=== PATIENT | female | born 1960 ===

== ENCOUNTER 2016-11-16 15:59 | Emergency (ER) | payer MEDICARE, MEDICAID ==
[2016-11-16 16:00] VITALS: BMI 35.9
[2016-11-16 16:05] VITALS: TEMP 98.7
[2016-11-16] MEDS ORDERED: Sodium Chloride 0.9% 1,000 ML IV ONE ×2 (16:23)
[2016-11-16] MEDS ORDERED: Sodium Chloride 0.9% 1,000 ML ONE (16:32)
[2016-11-16 16:40] LABS: BASO % 0.5 % (0.0-2.0); EOS % 0.3 % (0.0-4.0); LYMPH # 2.3 K/uL (1.0-4.3); LYMPH % 29.7 % (20.0-40.0); MEAN CELL VOLUME 89.7 fL (81.0-99.0); MEAN CORPUSCULAR HEMOGLOBIN 29.5 pg (27.0-31.0); MEAN CORPUSCULAR HGB CONC 32.9 g/dL (33.0-37.0); MONO # 0.3 K/uL (0.0-0.8); MONO % 4.4 % (0.0-10.0); RED CELL DISTRIBUTION WIDTH 11.6 % (11.5-14.5); WHITE BLOOD COUNT 7.6 K/uL (4.8-10.8)
--- NOTE | 2016-11-16 16:42 | RAD ---
PROCEDURE: CHEST RADIOGRAPH, 1 VIEW HISTORY: Abdominal pain COMPARISON: 01/02/2013 FINDINGS: LUNGS: The lungs are clear. PLEURA: No pneumothorax or pleural fluid seen. CARDIOVASCULAR: Normal. OSSEOUS STRUCTURES: No significant abnormalities. VISUALIZED UPPER ABDOMEN: Normal. OTHER FINDINGS: None. IMPRESSION: No active pulmonary disease.
[2016-11-16 16:50] LABS: CHLORIDE 98 mmol/L (98-107); SODIUM 136 mmol/L (132-148)
[2016-11-16 16:52] LABS: AST/SGOT 50 U/L (14-36); BILIRUBIN,TOTAL 1.5 mg/dL (0.2-1.3); CARBON DIOXIDE 24 mmol/L (22-30); GFR AFRICAN-AMERICAN > 60
[2016-11-16 16:53] LABS: ALB/GLOB RATIO 1.6 (1.0-2.1); ALKALINE PHOSPHATASE 95 U/L (38-126); ALT/SGPT 16 U/L (9-52); BLOOD UREA NITROGEN 10 mg/dL (7-17); CALCIUM 8.7 mg/dl (8.6-10.4); GLUCOSE,RANDOM 333 mg/dL (65-105); TOTAL PROTEIN 8.6 g/dL (6.3-8.3)
[2016-11-16 16:58] LABS: POTASSIUM 5.1 mmol/L (3.6-5.2)
--- NOTE | 2016-11-16 17:27 | C.PDOC ---
History Of Present Illness The patient, a 56 y/o female, presents to the ED for evaluation of vomiting which began around 2 days ago. Patient has been taking Zofran at home without relief. Patient also reports mild diffuse abdominal pain. She reports right- sided rib pain which begins occurring after episodes of vomiting. She denies fever, chills, chest pain, or diarrhea. Time Seen by Provider: 11/16/16 16:09 Chief Complaint (Nursing): GI Problem History Per: Patient History/Exam Limitations: no limitations Onset/Duration Of Symptoms: Days (2) Current Symptoms Are (Timing): Still Present Severity: Mild Quality Of Discomfort: "Pain" Associated Symptoms: Vomiting. denies: Fever, Chills, Diarrhea Exacerbating Factors: None Alleviating Factors: None Additional History Per: Patient Abnormal Vaginal Bleeding: No Past Medical History Reviewed: Historical Data, Nursing Documentation, Vital Signs Vital Signs: Last Vital Signs Temp 98.7 F 11/16/16 16:01 Pulse 82 11/16/16 18:45 Resp 18 11/16/16 18:45 BP 118/67 11/16/16 18:45 Pulse Ox 98 11/16/16 18:45 - Medical History PMH: Anxiety, Back Problems (Herniated Disc), Depression, Diabetes, HTN Surgical History: No Surg Hx - [facility] Procedures ANESTH INJECT-SPIN CANAL (07/18/13) APPLICATION OF SPLINT (04/19/14) ENDOSC POLYPECTOMY OF LG INTEST (02/09/13) INJECT STEROID (07/18/13) INJECT/INFUSE NEC (11/24/12) LUMBOSAC SPINE X-RAY NEC (07/18/13) SPINAL CANAL INJECT NEC (07/18/13) TETANUS TOXOID ADMINIST (04/19/14) Family History: States: Unknown Family Hx - Social History Hx Tobacco Use: No Hx Alcohol Use: No Hx Substance Use: No Review Of Systems Constitutional: Negative for: Fever, Chills Gastrointestinal: Positive for: Vomiting, Abdominal Pain (mild, diffuse ). Negative for: Diarrhea Musculoskeletal: Positive for: Other (+right-sided rib pain s/p episodes of vomiting ) Physical Exam - Physical Exam Appears: Non-toxic, No Acute Distress Skin: Normal Color, Warm, Dry Head: Atraumatic, Normacephalic Eye(s): bilateral: Normal Inspection Oral Mucosa: Moist Neck: Supple Chest: Symmetrical, No Deformity, No Tenderness Cardiovascular: Rhythm Regular, No Murmur Respiratory: No Rales, No Rhonchi, No Wheezing Gastrointestinal/Abdominal: Soft, No Tenderness (mild mostly epigastric), No Guarding, No Rebound Back: Normal Inspection Extremity: Normal ROM Neurological/Psych: Oriented x3, Normal Speech, Normal Cognition Gait: Steady ED Course And Treatment - Laboratory Results Result Diagrams: 11/16/16 16:31 11/16/16 16:31 ECG: Interpreted By Me, Viewed By Me ECG Rhythm: Sinus Rhythm Interpretation Of ECG: Sinus Rhythm at rate 86bpm. Rate From EC O2 Sat by Pulse Oximetry: 99 (on RA) Pulse Ox Interpretation: Normal - Other Rad CXR X-Ray: Interpreted by Me, Viewed By Me, Read By Radiologist Interpretation: Accession No. : [id number]. Patient Name / ID : LUPE CHE / [id number]. Exam Date : 11/16/2016 16:29:19 ( Approved ). Study Comment : Sex / Age : F / [id number]. Creator : NANI MORTENSEN MD. Dictator : NNAI MORTENSEN MD. Decay Control Operator : Roastmaster : NANI MORTENSEN MD. Approver2 : Report Date : 11/16/2016 16:41:05. My Comment : . PROCEDURE: CHEST RADIOGRAPH, 1 VIEW. HISTORY: Abdominal pain. COMPARISON: 01/02/2013. FINDINGS: LUNGS: The lungs are clear. PLEURA: No pneumothorax or pleural fluid seen. CARDIOVASCULAR: Normal. OSSEOUS STRUCTURES: No significant abnormalities. VISUALIZED UPPER ABDOMEN: Normal. OTHER FINDINGS: None. IMPRESSION: No active pulmonary disease. Medical Decision Making Medical Decision Making: Plan: * labs * EKG * CXR * Pepcid IV * Reglan IV * IV Fluids * reassess and disposition Progress: labs, EKG, CXR ordered and reviewed. Patient was treated with Pepcid IV, Reglan IV, and IV Fluids. No indication of DKA, pt responded to reglan without vomiting in the ED Labs plan discussed pt requested dilaudid for her side pain prior to leaving, only after dc plans discussed. "so i can sleep at home" Pt has no indication of surgical abd, daughter will arrange Uber to home Plan dc home with reglan Disposition Counseled Patient/Family Regarding: Diagnosis, Need For Followup - Disposition Referrals: Shaik Lopez MD [Staff Provider] - Disposition: HOME/ ROUTINE Disposition Time: 18:08 Condition: GOOD Prescriptions: Metoclopramide [Reglan] 1 tab PO TID PRN #25 tab PRN Reason: Nausea/Vomiting Instructions: Acute Nausea and Vomiting (ED), Abdominal Pain (ED) - Clinical Impression Clinical Impression: Nausea, Vomiting, Abdominal pain - Scribe Statement The provider has reviewed the documentation as recorded by the Scribe (Dana Spencer) Provider Attestation: All medical record entries made by the Scribe were at my direction and personally dictated by me. I have reviewed the chart and agree that the record accurately reflects my personal performance of the history, physical exam, medical decision making, and the department course for this patient. I have also personally directed, reviewed, and agree with the discharge instructions and disposition.
[2016-11-16 17:41] LABS: RBC URINE 9 /hpf (0-3); URINE BACTERIA RARE (<OCC); URINE BILIRUBIN NEGATIVE (NEGATIVE); URINE BLOOD NEGATIVE (NEGATIVE); URINE COLOR Yellow (YELLOW); URINE GLUCOSE (UA) 3+ mg/dL (Normal); URINE KETONE NEGATIVE (NEGATIVE); URINE LEUKOCYTE ESTERASE NEG Leu/uL (Negative); URINE PROTEIN NEGATIVE (NEGATIVE); URINE UROBILINOGEN NORMAL mg/dL (0.2-1.0); WBC URINE 1 /hpf (0-5)
[2016-11-16] MEDS ORDERED: HYDROmorphone 0.5 mg/0.5 ml ISec IVP STA (18:07)
[2016-11-16] MEDS ORDERED: HYDROmorphone 1 mg/ml ISec ONE (18:19)
[2016-11-16 18:45] VITALS: BP 118/67; PULSE 82; RESP 18
[2016-11-17 12:40] VITALS: O2SAT 99
--- NOTE | 2016-11-18 07:55 | CARD ---
APPROVED REPORT EKG Measurement Heart [id number] <Conclusion> Poor data quality, interpretation may be adversely affected Normal sinus rhythm Normal ECG
== END 2016-11-16 18:51 | disposition home or self-care (01) ==
LOC: C.ER 15:59
DX: R11.2 Nausea with vomiting, unspecified (principal); R10.84 Generalized abdominal pain
CPT/HCPCS: 71010; 80053; 81001; 82009; 83690; 84484; 85025; 93005; 96361; 96374; 96375; 99285; J1170; J2765; J7040

== ENCOUNTER 2017-07-08 07:47 | Day surgery (SDC) | payer MEDICARE, OTHER ==
[2017-07-08 08:33] VITALS: BMI 35.0
[2017-07-08] MEDS ORDERED: Midazolam 2 MG/2 ML VIAL ONE (09:37)
[2017-07-08] MEDS ORDERED: Propofol 10 mg/ml Inj (20 ML) ONE ×2 (09:38→10:14)
[2017-07-08] MEDS ORDERED: Lactated Ringer's 1,000 ML IV ONE (09:54)
--- NOTE | 2017-07-08 09:54 | CP.SDSHP ---
Same Day Surgery H & P - History Proposed Procedure: Colonoscopy Pre-Op Diagnosis: Abnormal GI tract imaging - Previous Medical/Surgical History Cardiac: Hypertension Endocrine/Metabolic: Diabetes Previous Surgical History: BTL - Allergies Allergies: Allergies metronidazole [From Flagyl] Allergy (Intermediate, Verified 07/08/17 08:34) RASH - Current Medications Current Medications: reviewed, per reconciliation - Physical Exam General Appearance: wdwn nad Vital Signs: Vital Signs 07/08/17 08:21 Temperature 97.5 F L Pulse Rate 78 Respiratory 18 Rate Blood Pressure 137/87 O2 Sat by Pulse 98 Oximetry Mental Status: Alert & Oriented x3 Heart: WNL Lungs: WNL GI: WNL - {Optional Preform as Required} Abdomen: WNL - Impression Impression: Abnormal GI tract imaging Pt. Evaluated Today:Candidate for Anesthesia & Procedure: Yes - Date & Time Date: 07/08/17 Time: 09:54 Short Stay Discharge - Short Stay Discharge Admitting Diagnosis/Reason for Visit: COLITIS Disposition: HOME/ ROUTINE
[2017-07-08 10:39] VITALS: TEMP 97.4
[2017-07-08 10:46] VITALS: O2SAT 100
[2017-07-08 12:16] VITALS: BP 132/72; PULSE 78; RESP 17
== END 2017-07-08 11:50 | disposition home or self-care (01) ==
LOC: C.ENDO 07:47
PROVIDERS: ATTEND Internal Medicine Gastroenterology
DX: R93.3 Abnormal findings on diagnostic imaging of other parts of digestive tract (principal); E11.9 Type 2 diabetes mellitus without complications
CPT/HCPCS: 45378; 82948; J2250; J2704; J7120

== ENCOUNTER 2017-11-29 12:52 | Emergency (ER) | payer MEDICARE, OTHER ==
[2017-11-29 12:53] VITALS: BMI 35.0
[2017-11-29 13:17] VITALS: RESP 18; O2SAT 100
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
[2017-11-29] MEDS ORDERED: Oxycodone/Acetaminophen 5/325 mg Tab PO STA (15:33)
[2017-11-29] MEDS ORDERED: Oxycodone/Acetaminophen 5/325 mg Tab ONE (15:44)
[2017-11-29 16:54] VITALS: BP 139/76; PULSE 89; TEMP 97.8
== END 2017-11-29 17:03 | disposition home or self-care (01) ==
LOC: C.ER 12:52
DX: M25.522 Pain in left elbow (principal)
CPT/HCPCS: 73080; 82948; 96372; 99284; J1885

== ENCOUNTER 2018-01-18 18:05 | Emergency (ER) | payer MEDICARE, OTHER ==
[2018-01-18 18:10] VITALS: BMI 34.7
[2018-01-18 18:13] VITALS: BP 137/90; PULSE 105; RESP 22; TEMP 98.1; O2SAT 95
--- NOTE | 2018-01-18 19:18 | C.PDOC ---
History Of Present Illness HPI: Patient is a 57 year old female who reports for opiate withdrawal. She states she usually takes Oxycodone 30mg 4 times a day for the past 7 years, and Xanax 1mg 3 times daily as well. She states she last took Oxycodone 2 days ago, and she experienced some shaking earlier today. She states she took Xanax earlier today around 1pm. She states she feels anxious, has some abdominal pain, nausea, vomiting, diarrhea. She states she does not want detox from opioids at this time. PMH: herniated disk, right rotator cuff, DM Meds: Metformin, Novolog Allergies: Flagyl - pruritis Time Seen by Provider: 01/18/18 18:50 Chief Complaint (Nursing): Substance Abuse Past Medical History Vital Signs: Last Vital Signs Temp 98.1 F 01/18/18 18:10 Pulse 105 H 01/18/18 18:10 Resp 22 01/18/18 18:10 BP 137/90 01/18/18 18:10 Pulse Ox 95 01/18/18 19:49 - Medical History PMH: Anxiety, Arthritis, Back Problems (Herniated Disc), Crohn's Disease, Depression, Diabetes, HTN, Chronic Pain Denies: Chronic Kidney Disease - [facility] Procedures ANESTH INJECT-SPIN CANAL (07/18/13) APPLICATION OF SPLINT (04/19/14) ENDOSC POLYPECTOMY OF LG INTEST (02/09/13) INJECT STEROID (07/18/13) INJECT/INFUSE NEC (11/24/12) LUMBOSAC SPINE X-RAY NEC (07/18/13) SPINAL CANAL INJECT NEC (07/18/13) TETANUS TOXOID ADMINIST (04/19/14) Family History: States: Unknown Family Hx - Social History Hx Tobacco Use: No Hx Alcohol Use: No Hx Substance Use: No - Immunization History Hx Tetanus Toxoid Vaccination: No Hx Influenza Vaccination: No Hx Pneumococcal Vaccination: No Review Of Systems Constitutional: Negative for: Fever, Chills Cardiovascular: Negative for: Chest Pain, Palpitations, Light Headedness Gastrointestinal: Positive for: Nausea, Vomiting, Abdominal Pain, Diarrhea Psych: Positive for: Anxiety, Withdrawal Physical Exam - Physical Exam Appears: Well, Non-toxic Skin: Warm, Dry Head: Atraumatic, Normacephalic Eye(s): bilateral: EOMI Cardiovascular: Rhythm Regular, No Murmur, No JVD Respiratory: Normal Breath Sounds, No Rales, No Rhonchi, No Stridor, No Wheezing Gastrointestinal/Abdominal: Bowel Sounds (Hyperactive ), Soft, No Tenderness Pulses: Right Femoral: Normal, Left Dorsalis Pedis: Normal Neurological/Psych: Oriented x3, Other (Not tremulous) ED Course And Treatment O2 Sat by Pulse Oximetry: 95 Progress Note: Patient states she does not want Tylenol since that will not work for her pain. Still continues to refuse detox. Reevaluation Time: 19:40 Medical Decision Making Medical Decision Making: Tylenol 650mg PO and Zofran 4mg PO ordered for patient. She refused Tylenol stating that it would not work for her pain. Patient is not currently withdrawing and is refusing opiate detox at this time. Disposition - Disposition Referrals: [facility] [Outside] Disposition: HOME/ ROUTINE Disposition Time: 19:45 Condition: STABLE Additional Instructions: Please return to the ED if symptoms worsen or recur. Follow up with PMD or [facility] to discuss prescription pain killer use. Return to the ED if symptoms of withdrawal return. Instructions: Prescription Drug Abuse (DC) Forms: [facility] (Nepali) - Clinical Impression Clinical Impression: Opioid abuse, Prescription drug abuse
== END 2018-01-18 19:52 | disposition home or self-care (01) ==
LOC: C.ER 18:05
DX: F11.10 Opioid abuse, uncomplicated (principal)

== ENCOUNTER 2018-07-29 09:30 | Emergency (ER) | payer MEDICARE, OTHER ==
[2018-07-29 09:31] VITALS: BMI 34.7
[2018-07-29] MEDS ORDERED: Sodium Chloride 0.9% 1,000 ML IV ONE (10:19)
[2018-07-29] MEDS ORDERED: Albuterol-Ipratrop 3 mg / 0.5 (3 ml) UD INH STA ×3 (10:19→13:38)
--- NOTE | 2018-07-29 10:27 | C.PDOC ---
History Of Present Illness 57 year old female presents to ED with complaint of right sided abdominal pain for more than a week. Patient describes that pain as sharp and constant. She states that the pain has gotten worse. She is also complaining of vomiting and says she has already vomited 3-4 times. Her last bowel movement was yesterday and there is questionable blood in her urine. Patient has a history of diabetes, asthma, and kidney stones. Patient denies diarrhea ,nausea, fever, and chills. Time Seen by Provider: 07/29/18 09:53 Chief Complaint (Nursing): Abdominal Pain History Per: Patient History/Exam Limitations: no limitations Onset/Duration Of Symptoms: Days (>7 ), Persistent, Worse Since Current Symptoms Are (Timing): Worse Location Of Pain/Discomfort: Other (right sided) Quality Of Discomfort: "Pain" Associated Symptoms: Vomiting, Urinary Symptoms. denies: Fever, Chills, Nausea, Diarrhea, Constipation Past Medical History Reviewed: Historical Data, Nursing Documentation, Vital Signs Vital Signs: Last Vital Signs Temp 99 F 07/29/18 09:43 Pulse 87 07/29/18 09:43 Resp 18 07/29/18 09:43 BP 127/87 07/29/18 09:43 Pulse Ox 97 07/29/18 09:43 - Medical History PMH: Anxiety, Arthritis, Back Problems (Herniated Disc), Crohn's Disease, Depression, Diabetes, HTN, Chronic Pain Denies: Chronic Kidney Disease Surgical History: No Surg Hx - [facility] Procedures ANESTH INJECT-SPIN CANAL (07/18/13) APPLICATION OF SPLINT (04/19/14) ENDOSC POLYPECTOMY OF LG INTEST (02/09/13) INJECT STEROID (07/18/13) INJECT/INFUSE NEC (11/24/12) LUMBOSAC SPINE X-RAY NEC (07/18/13) SPINAL CANAL INJECT NEC (07/18/13) TETANUS TOXOID ADMINIST (04/19/14) Family History: States: Unknown Family Hx - Social History Hx Tobacco Use: No Hx Alcohol Use: No Hx Substance Use: No - Immunization History Hx Tetanus Toxoid Vaccination: No Hx Influenza Vaccination: No Hx Pneumococcal Vaccination: No Review Of Systems Constitutional: Negative for: Fever, Chills, Weakness Gastrointestinal: Positive for: Vomiting, Abdominal Pain. Negative for: Nausea, Diarrhea, Constipation Genitourinary: Positive for: Hematuria (questionable) Neurological: Negative for: Weakness, Numbness, Dizziness Physical Exam - Physical Exam Appears: Well, Non-toxic, No Acute Distress Skin: Normal Color, Warm, Dry Head: Atraumatic, Normacephalic Eye(s): bilateral: Normal Inspection, PERRL, EOMI Neck: Normal ROM, Supple Chest: Symmetrical, No Deformity Cardiovascular: Rhythm Regular, No Murmur Respiratory: Wheezing (expiratory ) Gastrointestinal/Abdominal: Soft, Tenderness (mild right-sided midline and lower quadrant area) Back: No CVA Tenderness Extremity: Capillary Refill (<2 seconds) Extremity: Bilateral: Atraumatic, Normal Color And Temperature Neurological/Psych: Oriented x3, Normal Speech, Normal Cognition ED Course And Treatment - Laboratory Results Result Diagrams: 07/29/18 10:26 07/29/18 10:26 O2 Sat by Pulse Oximetry: 97 (RA) Pulse Ox Interpretation: Normal - Radiology CXR: Read By Radiologist CXR Interpretation: Yes: No Acute Disease. No: Infiltrates - CT Scan/US Abdomen/ Pelvis CT Other Rad Studies (CT/US): Interpreted By Me, Read By Radiologist CT/US Interpretation: Accession No. : [id number]. Patient Name / ID : LUPE CHE / [id number]. Exam Date : 07/29/2018 11:06:57 ( Approved ). Study Comment : Sex / Age : F / 57Y. Creator : Alicia Garcia. Dictator : Elissa Londono MD. Test Rack Operator : Deputy County Attorney : Elissa Londono MD. Approver2 : Report Date : 07/29/2018 11:14:24. My Comment : . PROCEDURE: CT Abdomen and Pelvis without Oral or IV contrast. HISTORY: right side pain, hx kidney stones. COMPARISON: CT abdomen pelvis without contrast performed 11/18/14. TECHNIQUE: Contiguous axial images of the abdomen and pelvis. No oral or IV contrast administered. Coronal and Sagittal reformats generated and reviewed. Radiation dose: Total exam DLP = 1167.83 mGy-cm. This CT exam was performed using one or more of the following dose reduction techniques: Automated exposure control, adjustment of the mA and/or kV according to patient size, and/or use of iterative reconstruction technique. FINDINGS: There is limited evaluation of the solid organs without the administration of IV contrast. LOWER THORAX: No visible consolidation, pleural effusion, or pneumothorax. LIVER: Hepatomegaly. Echogenic liver may be seen in setting of hepatic parenchymal disease or fatty infiltration. GALLBLADDER AND BILE DUCTS: Unremarkable. PANCREAS: Unremarkable. SPLEEN: Unremarkable. ADRENALS: Unremarkable. KIDNEYS AND URETERS: No hydronephrosis or obstructing renal calculus. 4 mm nonobstructing left lower pole calculus. BLADDER: Under distention of the urinary bladder limits evaluation. REPRODUCTIVE: Uterus is present. APPENDIX: The appendix appears within normal limits of caliber. No secondary signs of acute appendicitis. BOWEL: The st omach is nondistended. Lack of oral contrast limits evaluation for bowel pathology. The bowel loops appear within normal limits of caliber without evidence of intestinal obstruction. Diverticulosis without CT evidence of acute diverticulitis. PERITONEUM: No significant free fluid. No definite free air. LYMPH NODES: No bulky lymphadenopathy identified. VASCULATURE: No atherosclerotic calcifications of the aorta evident. No aortic aneurysm. BONES: Scoliosis. OTHER FINDINGS: 5 mm calcification within the lower abdomen/pelvis, possibly small calcified lymph node. IMPRESSION: Hepatomegaly. Echogenic liver may be seen in setting of hepatic parenchymal disease or fatty infiltration. 4 mm nonobstructing left lower pole renal calculus. No hydronephrosis evident bilaterally. Diverticulosis without CT evidence of acute diverticulitis. Additional incidental findings as above. Medical Decision Making Medical Decision Making: Impression: 57 year old with right sided abdominal pain. Plan: Labs ordered with urine culture and UA for patient. Patient given Duoneb INH, Zofran IVP, and IV fluids. Added on 60 mg PO Prednisolone as well as CXR. CXR shows no acute disease. 13:35 On reevaluation, patient still with scattered wheezing on exam though she reports feeling better. Will give one more nebulizer treatment in the ED. Abdomen is soft, non-tender, non-distended. Patient has not vomited in the ED. 1448 pt with no abdominal pain at this time, has tolerated fluids in ed. cxr neg for infiltrate. wheezing has resolved. will d/c pt home with nebulizer machine, meds for nebulizer and prednisone, f/u pmd and Dr Rosas Disposition Counseled Patient/Family Regarding: Studies Performed, Diagnosis, Need For Followup, Rx Given - Disposition Referrals: Anjel Copeland MD [Staff Provider] - Jostin Rosas MD [Staff Provider] - Disposition: HOME/ ROUTINE Disposition Time: 14:50 Condition: IMPROVED Additional Instructions: Use nebulizer machine 3-4 times a day if needed. Finish prednisione. Follow up with Dr Copeland and with Dr Rosas in the next few days. Return to ER for any worsening symptoms. Prescriptions: Albuterol 0.083% [Albuterol 0.083% Inhal Coby (2.5 mg/3 ml) UD] 2.5 mg IH Q6 #50 neb Nebulizer [Compact Compressor Nebulizer] 1 each MC Q6 #1 each Nitrofurantoin Macrocrystals [Macrobid] 100 mg PO BID #14 cap Instructions: Asthma, Adult (DC), Urinary Tract Infection, Adult (DC), How to Use a Nebulizer, Adult Forms: [facility] (Tongan), General Discharge Instructions - Clinical Impression Clinical Impression: UTI (urinary tract infection), Asthma - PA / [employer] / Resident Statement MD/DO has reviewed & agrees with the documentation as recorded. (Sasha Dale) - Scribe Statement The provider has reviewed the documentation as recorded by the Scribe (Sasha Dale) All medical record entries made by the Scribe were at my direction and personally dictated by me. I have reviewed the chart and agree that the record accurately reflects my personal performance of the history, physical exam, medical decision making, and the department course for this patient. I have also personally directed, reviewed, and agree with the discharge instructions and disposition.
[2018-07-29 10:30] LABS: BASO % 0.4 % (0.0-2.0); EOS % 0.9 % (0.0-4.0); HEMOGLOBIN 13.2 g/dL (11.0-16.0); LYMPH # 2.2 K/uL (1.0-4.3); LYMPH % 38.3 % (20.0-40.0); MEAN CELL VOLUME 90.1 fL (81.0-99.0); MEAN CORPUSCULAR HEMOGLOBIN 29.1 pg (27.0-31.0); MEAN CORPUSCULAR HGB CONC 32.3 g/dL (33.0-37.0); MEAN PLATELET VOLUME 9.3 fL (7.2-11.7); MONO # 0.5 K/uL (0.0-0.8); MONO % 8.6 % (0.0-10.0); NEUT % 51.8 % (50.0-75.0); RBC 4.55 Mil/uL (3.80-5.20); RED CELL DISTRIBUTION WIDTH 12.5 % (11.5-14.5); WHITE BLOOD COUNT 5.8 K/uL (4.8-10.8)
[2018-07-29 10:38] LABS: SQUAMOUS EPITHIAL 70 /hpf (0-5); URINE BACTERIA OCC (<OCC); URINE BILIRUBIN NEGATIVE (NEGATIVE); URINE BLOOD NEGATIVE (NEGATIVE); URINE CLARITY Hazy (Clear); URINE COLOR Amber (YELLOW); URINE GLUCOSE (UA) NORMAL (Normal); URINE LEUKOCYTE ESTERASE 3+ Leu/uL (Negative); URINE PROTEIN 1+ mg/dL (NEGATIVE); URINE UROBILINOGEN NORMAL mg/dL (0.2-1.0)
[2018-07-29] MEDS ORDERED: Albuterol-Ipratrop 3 mg / 0.5 (3 ml) UD ONE ×3 (10:43→13:44)
[2018-07-29 10:44] LABS: ALB/GLOB RATIO 1.2 (1.0-2.1); ALBUMIN 4.4 g/dL (3.5-5.0); ALT/SGPT 26 U/L (9-52); AST/SGOT 33 U/L (14-36); BLOOD UREA NITROGEN 10 mg/dL (7-17); CALCIUM 9.1 mg/dl (8.6-10.4); GFR NON-AFRICAN AMERICAN > 60; LIPASE 15 U/L (23-300)
--- NOTE | 2018-07-29 11:42 | CT ---
PROCEDURE: CT Abdomen and Pelvis without Oral or IV contrast. HISTORY: right side pain, hx kidney stones COMPARISON: CT abdomen pelvis without contrast performed 11/18/14 TECHNIQUE: Contiguous axial images of the abdomen and pelvis. No oral or IV contrast administered. Coronal and Sagittal reformats generated and reviewed. Radiation dose: Total exam DLP = 1167.83 mGy-cm. This CT exam was performed using one or more of the following dose reduction techniques: Automated exposure control, adjustment of the mA and/or kV according to patient size, and/or use of iterative reconstruction technique. FINDINGS: There is limited evaluation of the solid organs without the administration of IV contrast. LOWER THORAX: No visible consolidation, pleural effusion, or pneumothorax. LIVER: Hepatomegaly. Echogenic liver may be seen in setting of hepatic parenchymal disease or fatty infiltration. GALLBLADDER AND BILE DUCTS: Unremarkable. PANCREAS: Unremarkable. SPLEEN: Unremarkable. ADRENALS: Unremarkable. KIDNEYS AND URETERS: No hydronephrosis or obstructing renal calculus. 4 mm nonobstructing left lower pole calculus. BLADDER: Under distention of the urinary bladder limits evaluation. REPRODUCTIVE: Uterus is present. APPENDIX: The appendix appears within normal limits of caliber. No secondary signs of acute appendicitis. BOWEL: The stomach is nondistended. Lack of oral contrast limits evaluation for bowel pathology. The bowel loops appear within normal limits of caliber without evidence of intestinal obstruction. Diverticulosis without CT evidence of acute diverticulitis. PERITONEUM: No significant free fluid. No definite free air. LYMPH NODES: No bulky lymphadenopathy identified. VASCULATURE: No atherosclerotic calcifications of the aorta evident. No aortic aneurysm. BONES: Scoliosis. OTHER FINDINGS: 5 mm calcification within the lower abdomen/pelvis, possibly small calcified lymph node. IMPRESSION: Hepatomegaly. Echogenic liver may be seen in setting of hepatic parenchymal disease or fatty infiltration. 4 mm nonobstructing left lower pole renal calculus. No hydronephrosis evident bilaterally. Diverticulosis without CT evidence of acute diverticulitis. Additional incidental findings as above.
--- NOTE | 2018-07-29 12:49 | RAD ---
HISTORY: wheezing COMPARISON: Chest x-ray performed 11/16/16 TECHNIQUE: Chest PA and lateral FINDINGS: LUNGS: No focal consolidation. Please note that chest x-ray has limited sensitivity for the detection of pulmonary masses. PLEURA: No significant pleural effusion identified. No definite pneumothorax . CARDIOVASCULAR: Heart size appears within normal limits. Ectatic aorta. Atherosclerotic calcifications present. OSSEOUS STRUCTURES: Degenerative changes. VISUALIZED UPPER ABDOMEN: Unremarkable. OTHER FINDINGS: None. IMPRESSION: No focal consolidation.
[2018-07-29 15:07] VITALS: BP 128/78; PULSE 78; RESP 18; TEMP 98.8
[2018-08-02 00:59] VITALS: O2SAT 97
== END 2018-07-29 15:16 | disposition home or self-care (01) ==
LOC: C.ER 09:30
DX: N39.0 Urinary tract infection, site not specified (principal); J45.909 Unspecified asthma, uncomplicated
CPT/HCPCS: 71046; 74176; 80053; 81001; 83690; 85025; 87086; 94640; 96361; 96374; 99285; J2405; J7030